=== PATIENT | male | born 1945 | race Caucasian/White ===

== ENCOUNTER → 2016-08-10 | Outpatient (CLI) | payer BC ==
[~2016-08-10] MED LIST: ASCO10003 PO; ASPI325T39 PO; B CO PO; BETA2500 PO; CLRD24 PO; FLUT0.15; GLUC10007 PO; LISI-725 PO; LYCO10CA PO; MULT-1027 PO; VITA1CRE PO; VITACAP37 PO; ZNTT/150 PO
[2016-08-10 13:52] VITALS: BP 134/83; PULSE 96; TEMP 36.7; O2SAT 97
--- NOTE | 2016-08-10 17:26 | Radiation Oncology Follow-Up ---
Radiation Oncology Follow-Up Date of Visit Aug 10, 2016. (Rachelle Cronin PA-C) Reason For Visit One-month follow-up (Rachelle Cronin PA-C) Radiation Completion Date 07/09/16;No hormonal therapy; (Rachelle Cronin PA-C) Diagnosis (1) Prostate cancer Onset Date: 06/30/2010 Location: both lobes of the prostate Histology Subtype: adenocarcinoma Permanent Comment: STAGING: Prostate, adenocarcinoma, juanita 4 + 3, pre-RP PSA 5.42, post-RP PSA 0.05, pT2c TREATMENT: 1. Prostate biopsy - 06/30/2010 2. Radical Prostatectomy - 09/28/2010 - Dr. Valle ([facility] [place], [place], [place]) 3. Status post completion of salvage radiation therapy 07/09/2016 received 7020 cGy, no hormone suppression Last Edited By: Rachelle Cronin on Jul 23, 2016 14 :57 (Rachelle Cronin PA-C) History of Present Illness Mr. Junior is a 70-year-old gentleman who initially presented with an elevated PSA of 4.21 on 01/01/2010. He had a repeat PSA on 05/25/2010 that was elevated to 5.42. He underwent a transrectal ultrasound-guided biopsy on 2010 which revealed [place] 3+3 prostate adenocarcinoma. The patient subsequently was taken for a radical prostatectomy on 09/28/[address] Valle; pathology revealed prostate adenocarcinoma that was [place] 4+3 with tertiary pattern 5 with comedonecrosis. Pathology also revealed no evidence of extraprostatic extension or seminal vesicle invasion but did reveal perineural invasion and a positive focal margin in the left lateral mid region. The patient subsequently had PSA undetectable in February 2011 and September 2011. The patient's PSA began to rise to 0.01 in August 2012, 0.02 in September 2013, 0.03 in August 2014, 0.04 on 08/27/2015 and 0.05 on 03/10/2016. Dr. Cannon discuss treatment options and recommended for consideration of salvage radiation therapy. We are now seeing the patient in consultation to discuss the role of radiation therapy. Decision was to proceed with salvage radiation therapy. He did not require hormone suppression. The radiation was completed 07/09/2016 he received 7020 cGy. (Rachelle Cronin PA-C) Interim History He has been doing well over this past month. He has not had any difficulty with urination. He given AUA score of 2. He completed and expanded prostate cancer index composite for clinical practice and gave a score of 3 of 12 in urinary incontinence symptoms. He gave a score of 0 12 and hormonal vitality symptoms. He gave a score of 0 12 in urinary irritation symptoms. He gave a score of 2 of 12 in bowel symptoms. He gave a score of 5 of 12 in sexual symptoms. He does use injections for erectile dysfunction. His total was 10 of 60. He had a very small amount of rectal bleeding at the very end of treatment. This resolved without difficulty. He was also having loose bowels at that time. This has also resolved. (Rachelle Cronin PA-C) Allergies Coded Allergies: No Known Allergies (Verified , 04/27/16) Home Medications Scheduled Ascorbic Acid (Vitamin C), 1 TAB PO DAILY Aspirin (Aspirin Ec), 325 MG PO DAILY B-Complex W/Biotin & Folic Aci (B-50 Complex), 1 TAB PO DAILY Beta Carotene (Beta Carotene), 1 CAP PO DAILY Fluticasone Propionate (Nasal) (Flonase Allergy Relief), 2 SPRAY NA DAILY Glucosamine Sulfate (Glucosamine), 1,000 MG PO DAILY Lisinopril (Zestril), 20 MG PO BID Loratadine/Pseudoephedrine (Claritin-D 24 Hour *), 1 TAB PO DAILY Lycopene (Lycopene), 1 CAP PO DAILY Multiple Vitamin (Multi Vitamin), 1 TAB PO DAILY Ranitidine (Zantac), 150 MG PO BID Vitamin E (Topical) (Vitamin E), 1 CAP PO DAILY Review of Systems Gastrointestinal: Symptoms: Rectal Bleeding GI Comments: Rectal spotting for "couple days" after completing RT-had diarrhea-resolved Oral: Symptoms: No Problems Respiratory: Symptoms: WNL Urinary: Symptoms: WNL Skin: Symptoms: No Problems (Rachelle Cronin PA-C) Physical Exam Vital Signs Date Time Temp Pulse Resp B/P Pulse Ox O2 Delivery O2 Flow Rate FiO2 08/10/16 13:52 36.7 96 12 134/83 97 Fatigue: None General Appearance: no apparent distress Eyes: normal inspection ENT: normal ENT inspection, hearing grossly normal Respiratory/Chest: lungs clear, no respiratory distress, no accessory muscle use Cardiovascular: regular rate, rhythm, no gallop, no murmur Extremities: non-tender, normal inspection, no pedal edema Neurologic/Psychiatric: alert, normal mood/affect Skin: warm/dry Lymphatic: no adenopathy (Rachelle Cronin PA-C) Assessment & Plan Plan: He'll be seeing Dr. Cannon in 3 weeks. He'll have a PSA prior to that visit. We asked him to return to our office in 6 months. He may call if he has any questions or concerns in the interim. (Rachelle Cronin PA-C) I agree with note created by Rachelle Cronin PA-C. I reviewed the patient's chart and information with her. (Veeral. Higgins MD) Total Time In Follow-Up I spent 20 minutes speaking to the patient performing examination. I spent 15 minutes reviewing information and completing this note. (Rachelle Cronin PA-C) Copy To Virgilio Ashley M.D.; Janey Cannon MD
== END | disposition home or self-care (01) ==
LOC: C.ONC 13:47
PROVIDERS: ATTEND Physician Assistant Medical
DX: Z08 Encounter for follow-up examination after completed treatment for malignant neoplasm (principal); Z92.3 Personal history of irradiation; Z85.46 Personal history of malignant neoplasm of prostate

== ENCOUNTER → 2017-02-10 | Outpatient (CLI) | payer BC ==
[2017-02-10 13:18] VITALS: BP 128/83; PULSE 77; TEMP 36.6; O2SAT 95
--- NOTE | 2017-02-10 14:44 | Radiation Oncology Follow-Up ---
Radiation Oncology Follow-Up Date of Visit Feb 10, 2017. Reason For Visit 6 month follow-up Radiation Completion Date finished 07-09-2016 Diagnosis (1) Prostate cancer Status: Resolved Onset Date: 06/30/2010 Location: both lobes of the prostate Histology Subtype: adenocarcinoma Permanent Comment: STAGING: Prostate, adenocarcinoma, juanita 4 + 3, pre-RP PSA 5.42, post-RP PSA 0.05, pT2c TREATMENT: 1. Prostate biopsy - 06/30/2010 2. Radical Prostatectomy - 09/28/2010 - Dr. Valle ([facility] [place], [place], [place]) 3. Status post completion of salvage radiation therapy 07/09/2016 received 7020 cGy, No Hormone Suppression Last Edited By: Rachelle Cronin on Feb 10, 2017 14: 37 History of Present Illness Mr. Junior is a 70-year-old gentleman who initially presented with an elevated PSA of 4.21 on 01/01/2010. He had a repeat PSA on 05/25/2010 that was elevated to 5.42. He underwent a transrectal ultrasound-guided biopsy on 2010 which revealed Juanita 3+3 prostate adenocarcinoma. The patient subsequently was taken for a radical prostatectomy on 09/28/[address] Valle; pathology revealed prostate adenocarcinoma that was [place] 4+3 with tertiary pattern 5 with comedonecrosis. Pathology also revealed no evidence of extraprostatic extension or seminal vesicle invasion but did reveal perineural invasion and a positive focal margin in the left lateral mid region. The patient subsequently had PSA undetectable in February 2011 and September 2011. The patient's PSA began to rise to 0.01 in August 2012, 0.02 in September 2013, 0.03 in August 2014, 0.04 on 08/27/2015 and 0.05 on 03/10/2016. Dr. Cannon discuss treatment options and recommended for consideration of salvage radiation therapy. We are now seeing the patient in consultation to discuss the role of radiation therapy. Decision was to proceed with salvage radiation therapy. He did not require hormone suppression. The radiation was completed 07/09/2016 he received 7020 cGy. Interim History He's been doing well over the past 6 months. His urinary status is stable. He completed an AUA score sheet and gave a score of 2. He completed and expanded prostate cancer index composite for clinical practice and gave a score of 3 of 12 and urinary incontinence symptoms. He gave a score of 0 of 12 in urinary irritation symptoms. He gave a score of 0 of 12 and bowel symptoms. He gave a score of 2 of 12 in sexual symptoms. He does use medication for erectile dysfunction. He gave a score of 0 of 12 and hormonal vitality symptoms. His total was 5 of 60. He does not require any medication to help with urination. He has been followed closely by Dr. Cannon and has had recheck PSAs. He had a PSA 09/20/2016 that was 0.03. He had a PSA 01/21/2017 that was 0.03. Allergies Coded Allergies: No Known Allergies (Verified , 04/27/16) Home Medications Scheduled Ascorbic Acid (Vitamin C), 1 TAB PO DAILY Aspirin (Aspirin Ec), 325 MG PO DAILY B-Complex W/Biotin & Folic Aci (B-50 Complex), 1 TAB PO DAILY Beta Carotene (Beta Carotene), 1 CAP PO DAILY Fluticasone Propionate (Nasal) (Flonase Allergy Relief), 2 SPRAY NA DAILY Glucosamine Sulfate (Glucosamine), 1,000 MG PO DAILY Lisinopril (Zestril), 20 MG PO BID Loratadine/Pseudoephedrine (Claritin-D 24 Hour *), 1 TAB PO DAILY Lycopene (Lycopene), 1 CAP PO DAILY Multiple Vitamin (Multi Vitamin), 1 TAB PO DAILY Ranitidine (Zantac), 150 MG PO BID Vitamin E (E-400), 1 PO DAILY Review of Systems Gastrointestinal: Symptoms: Rectal Bleeding GI Comments: has 2 soft BM `s a day Oral: Symptoms: No Problems Respiratory: Symptoms: WNL Urinary: Symptoms: Nocturia Comments: nocuria times 1 Skin: Symptoms: No Problems Physical Exam Vital Signs Date Time Temp Pulse Resp B/P (MAP) Pulse Ox O2 Delivery O2 Flow Rate FiO2 02/10/17 13:18 36.6 77 16 128/83 95 Pain: Side: Bilateral Patient Pain Scale: 0 - 10 Initial Pain Intensity: 0.0 Fatigue: None General Appearance: no apparent distress Eyes: normal inspection, EOMI ENT: normal ENT inspection, hearing grossly normal Respiratory/Chest: lungs clear, no respiratory distress, no accessory muscle use Cardiovascular: regular rate, rhythm, no gallop, no murmur Abdomen: non tender, soft, no organomegaly Extremities: no pedal edema Neurologic/Psychiatric: no motor/sensory deficits, alert, normal mood/affect Skin: warm/dry Additional Studies PSAs as reviewed above. Assessment & Plan Plan: Continue regular follow-up with Dr. Cannon in his primary care physician. He is going have PSAs every 3 months. He has a standing order at the lab at [facility]. He was seen today by Dr. Higgins. We asked him to return to our office in 1 year. He may call if he has any questions or concerns in the interim. Assessment & Plan (Attending) ADDENDUM: I agree with note created by Rachelle Cronin PA-C. I reviewed the patient's chart and information with her. I have examined and evaluated the patient. I reviewed relevant clinical information and answered the patient's and /or family's questions. GL[employer]ER Total Time In Follow-Up I spent 20 minutes speaking to the patient and performing examination. I spent 15 minutes reviewing information completing this note. [place] Total Time (Attending) In Follow-Up I spent 20 minutes examining and counseling the patient. I spent 5 minutes completing this note. GL[employer]ER Copy To Virgilio Ashley M.D.; Janey Cannon MD
== END | disposition home or self-care (01) ==
LOC: C.ONC 13:00
PROVIDERS: ATTEND Physician Assistant Medical
DX: Z08 Encounter for follow-up examination after completed treatment for malignant neoplasm (principal); Z92.3 Personal history of irradiation; Z85.46 Personal history of malignant neoplasm of prostate